=== PATIENT | female | born 1995 | race Caucasian/White ===

== ENCOUNTER 2017-08-15 09:53 | Emergency (ER) | payer SELFPAY ==
[2017-08-15 10:18] LABS: Bilirubin Negative (Negative); Blood, Urine Negative (Negative); Glucose, Urine (Dipstick) Negative (Negative); Ketone, Urine Negative (Negative); Nitrite Negative (Negative); Protein, Urine (Dipstick) Negative (Neg-Trace)
[2017-08-15] MEDS ORDERED: Ibuprofen 200 MG TAB ONE (11:33)
== END 2017-08-15 11:35 | disposition home or self-care (01) ==
LOC: ERS 09:53
DX: M54.5 Low back pain (principal); F17.210 Nicotine dependence, cigarettes, uncomplicated
CPT/HCPCS: 81003; 99283

== ENCOUNTER 2018-04-15 13:50 | Emergency (ER) | payer SELFPAY | END 2018-04-15 14:38 | disposition home or self-care (01) | LOC: ERS 13:50 | DX: J18.9 Pneumonia, unspecified organism (principal); J20.9 Acute bronchitis, unspecified; F17.210 Nicotine dependence, cigarettes, uncomplicated | CPT/HCPCS: 99283 ==

== ENCOUNTER 2018-07-13 09:50 | Emergency (ER) | payer SELFPAY ==
[2018-07-13] MEDS ORDERED: Ondansetron ODT 8 MG TAB ONE (10:19)
[2018-07-13] MEDS ORDERED: Ibuprofen 800 MG TAB ONE (10:19)
== END 2018-07-13 10:59 | disposition home or self-care (01) ==
LOC: ERS 09:50
DX: R11.2 Nausea with vomiting, unspecified (principal); R19.7 Diarrhea, unspecified; F17.210 Nicotine dependence, cigarettes, uncomplicated
CPT/HCPCS: 99283

== ENCOUNTER 2018-08-23 11:46 | Emergency (ER) | payer SELFPAY ==
--- NOTE | 2018-08-23 12:47 | RAD ---
2 VIEW CHEST: Date: 08/23/18 Reference made to 09/29/10. INDICATION: Cough. FINDINGS: The lungs are clear. Cardiac silhouette is normal in size. No effusion or pneumothorax. IMPRESSION: No focal consolidation. POS: [id number]
== END 2018-08-23 13:10 | disposition home or self-care (01) ==
LOC: ERS 11:46
DX: J20.8 Acute bronchitis due to other specified organisms (principal); J06.9 Acute upper respiratory infection, unspecified; F17.210 Nicotine dependence, cigarettes, uncomplicated
CPT/HCPCS: 71046

== ENCOUNTER 2018-12-03 12:38 | Emergency (ER) | payer SELFPAY | END 2018-12-03 14:40 | disposition home or self-care (01) | LOC: ERS 12:38 | DX: J06.9 Acute upper respiratory infection, unspecified (principal); F17.210 Nicotine dependence, cigarettes, uncomplicated | CPT/HCPCS: 87804; 99283 ==

== ENCOUNTER 2023-12-22 16:29 | Emergency (ER) | payer SELFPAY | END 2023-12-22 16:55 | disposition home or self-care (01) | LOC: ERS 16:29 | DX: R21 Rash and other nonspecific skin eruption (principal) | CPT/HCPCS: 99282 ==